=== PATIENT | male | born 1965 | race Caucasian/White ===

== ENCOUNTER → 2017-01-10 | Outpatient (CLI) | payer BC, SELFPAY ==
[~2017-01-10] MED LIST: ALIVE WOMEN'S1 EAC1 PO; ASA325 MG PO; CARAFATE DPS1 GM PO; CELEBREX100 MG PO; FISH OIL 1,2001 EAC1 PO; MIRALAX PACKET17 GM PO; OXY IR DPS5 MG PO; PRILOSEC DPS20 MG PO; PROSTA-STRONG PO; REFRESH TEARS15 ML OU; SENOKOT S1 TAB PO; SUPER B COMPLE150 MG PO; TYLENOL DPS325 MG PO; ULTRAM DPS50 MG PO
== END | disposition home or self-care (01) ==
LOC: PTH.S 09:13
DX: Z01.818 Encounter for other preprocedural examination (principal); M17.12 Unilateral primary osteoarthritis, left knee

== ENCOUNTER 2017-01-21 09:08 | Inpatient (IN) | payer BC, SELFPAY ==
[~2017-01-21] VITALS: Ht 162.6 cm; Wt 80.1 kg
--- NOTE | 2017-01-22 08:12 | HP ---
ADMIT: 01/21/2017 RM/LOC: W[facility] MR#: [id number] [address] [facility] [address] [place], [place] [address] [facility] [address] [place] [address] Pre-OP History and Physical SEX: M AGE: 51 : 1965 DATE OF SERVICE: CHIEF COMPLAINT: Osteoarthritis, left knee. HISTORY OF PRESENT ILLNESS: This patient presents today for left total knee arthroplasty. He has had all the usual conservative care including medication, injection, and activity modification, all without relief of his symptoms. Currently, he has pain that interferes with activities of daily living, pain that interferes with sleep, activity related pain, and rest pain. Because of ongoing pain unresponsive to conservative care, he presents for total knee arthroplasty of the left knee. PAST MEDICAL HISTORY: He has history of rheumatoid arthritis, a cardiac arrhythmia, and GERD. PAST SURGICAL HISTORY: Include a knee arthroscopy and a cataract surgery. MEDICATIONS: Include: 1. Aleve. 2. Multivitamin. 3. Fish oil. 4. Prilosec. ALLERGIES: NO ALLERGIES TO MEDICINES. FAMILY HISTORY: Noncontributory. SOCIAL HISTORY: Nonsmoker. Lives here in [place]. PHYSICAL EXAMINATION: This patient has -5 to 130 degrees range of motion of the left knee. He has a varus deformity, medial joint line pain, and patellofemoral crepitus. No effusion. IMAGING DATA: X-rays show advanced osteoarthritis with joint space collapse, subchondral sclerosis of marginal osteophytes. IMPRESSION: Osteoarthritis, left knee. RECOMMENDATIONS: Left total knee arthroplasty. Risks, benefits, alternatives, as well as potential complications were discussed. Aura Harper MD/ rosalio JOB #: [id number] CC: Aura Harper, Attending Physician Jose Serna, Family Physician
--- NOTE | 2017-01-22 08:12 | OR ---
ADMIT: 01/21/2017 RM/LOC: [address] [facility] [id number] [id number] [address] [facility] [facility] [place], [place] [address] [facility] [address] [place], [place] [address] Operative/Delivery Room Report SEX: M AGE: 51 : 1965 SURGERY DATE: 01/21/2017 SURGEON: Aura Harper MD PREOPERATIVE DIAGNOSIS: Osteoarthritis, left knee. POSTOPERATIVE DIAGNOSIS: Osteoarthritis, left knee. PROCEDURE: Left total knee arthroplasty. ASSISTED BY: Philipp Butler PA-C ANESTHESIA: Spinal. TOURNIQUET TIME: 48 minutes. ESTIMATED BLOOD LOSS: 25 mL. COMPLICATIONS: None. SPECIMEN: Bone. COMPONENTS: Lawrence [employer] [id number] total knee system with a #6 narrow posterior stabilized lugged femoral, #5 fixed bearing tibial, 6 mm tibial articular, and 38 mm patella. I used 80 g of [employer] SpeedSet bone cement without antibiotics. DESCRIPTION OF PROCEDURE: This patient was brought to the operating room after a satisfactory level of anesthesia was achieved. The left lower extremity was prepped and draped in the usual sterile fashion. Under tourniquet ischemia, a midline incision was made over the anterior aspect of the left knee. Dissection was carried through the subcutaneous tissue. Skin flaps were developed at the level of the joint capsule. A medial parapatellar incision was performed, and the patella was then everted. The knee was then flexed, and using an intramedullary alignment guide, I made my distal femoral cut at 5 degrees of the long axis of the femur taking off an additional millimeter to help compensate for his flexion contracture. The appropriate cutting blocks were then used to prepare the distal femur for a #6 narrow posterior stabilized lugged femoral component then the external alignment guide was then used to make my tibial cut at a right angle to the long axis of the tibia and #5 gave us the best coverage of the proximal tibia. A 6 mm tibial articular gave us the best range of motion and stability. The patella was measured and cut for a 38 mm patellar component and that restored his patellar height. All trial components were then removed. We used the [facility] pain cocktail as opposed to previously using Exparel, this was injected in the soft tissues per protocol then after thorough irrigation of all bony surfaces, I used 80 g of [place] bone cement without antibiotics to cement in all 3 components. They were impacted into position. A trial reduction performed with the knee held in extension and irrigated with warm antibiotic ADMIT: 01/21/2017 RM/LOC: [address] [facility] MR#: [id number] [address] [facility] [address] [place], [place] [id number] [facility] [address] [place] [address] Operative/Delivery Room Report SEX: M AGE: 51 : 1965 solution until the cement had hardened. When the cement had hardened, I flexed the knee, removed any extruded cement, irrigated the knee to remove any cement debris. I then released the tourniquet, obtained hemostasis and then implanted my final component. The 6 mm tibial articular, the knee was again reduced, and once again, I had very good stability in both extension and 90 degrees of flexion. Very stable patellofemoral tracking and then the joint capsule and synovium were closed as a single layer using interrupted #1 Vicryl and a running #2 Quill suture. The subcutaneous tissue was reapproximated with 2-0 Vicryl and a running subcuticular of 3-0 Monocryl was used and the skin was then closed with Ethicon Prineo per protocol. A sterile dressing was applied, and the patient was then transferred from the operative suite in stable condition. Aura Harper MD/ rosalio GARCES: 01/21/2017 13:25:05 JOB #: [id number] CC: Aura Harper, Attending Physician Jose Serna, Family Physician
[2017-01-24] MEDS ORDERED: SUPER B COMPLE150 MG PO (10:23)
[2017-01-24] MEDS ORDERED: PRILOSEC DPS20 MG PO (10:23)
[2017-01-24] MEDS ORDERED: FISH OIL 1,2001 EAC1 PO (10:24)
[2017-01-24] MEDS ORDERED: CARAFATE DPS1 GM PO (10:24)
[2017-01-24] MEDS ORDERED: PROSTA-STRONG PO (10:25)
[2017-01-24] MEDS ORDERED: ALIVE WOMEN'S1 EAC1 PO (10:26)
[2017-01-24] MEDS ORDERED: ASA325 MG PO (10:27)
[2017-01-24] MEDS ORDERED: REFRESH TEARS15 ML OU (10:27)
[2017-01-24] MEDS ORDERED: MIRALAX PACKET17 GM PO (10:27)
[2017-01-24] MEDS ORDERED: CELEBREX100 MG PO (10:27)
[2017-01-24] MEDS ORDERED: ULTRAM DPS50 MG PO (10:28)
[2017-01-24] MEDS ORDERED: TYLENOL DPS325 MG PO (10:28)
[2017-01-24] MEDS ORDERED: SENOKOT S1 TAB PO (10:28)
[2017-01-24] MEDS ORDERED: OXY IR DPS5 MG PO (10:29)
--- NOTE | 2017-02-11 11:27 | DS ---
ADMIT: 01/21/2017 RM/LOC: 526 [facility] MR#: [id number] [address] [place], [place] [address] APOLLO GUNTER [address] [place] [address] General Discharge Summary SEX: M AGE: 51 : 1965 ADMISSION DATE: 01/21/2017 DISCHARGE DATE: 01/23/2017 REASON FOR ADMISSION: Elective left total knee arthroplasty after failing conservative care. PREOPERATIVE DIAGNOSIS: Osteoarthritis of the left knee. POSTOPERATIVE DIAGNOSIS: Osteoarthritis of the left knee. PROCEDURE PERFORMED: Left total knee arthroplasty. SURGEON: Aura Harper MD DATA CENTER CONSULTANT: Philipp Butler PA-C ANESTHESIA: Spinal. ESTIMATED BLOOD LOSS: 25 mL. COMPLICATIONS: None. ACTIVE MEDICAL PROBLEMS: Fatty liver disease, reflux-induced esophagitis, hyperlipidemia, and lumbar spondylosis. HOSPITAL COURSE: The patient was admitted on 01/21/2017, for elective left total knee arthroplasty done successfully without any complications by Dr. Harper. The patient tolerated the procedure well. Postoperatively, the patient did well with pain control with use of intraoperative anesthetics as well as postoperative oral analgesics. The patient as expected did suffer from some acute blood loss anemia. His hemoglobin dropped to 13.1 on 01/23/2017, but he remained hemodynamically stable and did not require blood transfusion. By postoperative day #2, he was doing well with physical therapy. He was safe, stable, and ready for discharge home with plans for outpatient physical therapy. DISCHARGE MEDICATIONS: 1. Omeprazole 20 mg at bedtime. 2. Super B Complex vitamin every day. 3. Sucralfate 1 g 1 tablet twice daily as needed before meals. 4. Fish oil 1200 mg everyday. 5. Prosta-Strong 4 softgels everyday. 6. Active multivitamin every day. 7. Refresh Eyes 1 drop twice daily as needed for both eyes. 8. Aspirin 325 mg at bedtime for 6 weeks. ADMIT: 01/21/2017 RM/LOC: 526 [facility] MR#: [id number] [address] [place], [place] [address] LIZY GUNTERNO [address] [place] [address] General Discharge Summary SEX: M AGE: 51 : 1965 9. Celebrex 200 mg twice daily for 1 week. 10.MiraLax 17 g every day. 11.Senokot 2 tablets twice daily. 12.Tylenol 650 mg every 6 hours as needed for pain. 13.Ultram 50 mg 1 to 2 tablets every 6 hours as needed for pain. 14.Oxycodone IR 5 mg 1 to 2 tablets every 4 hours as needed for breakthrough pain. DISCHARGE INSTRUCTIONS: The patient was discharged home with plans for outpatient physical therapy per total knee arthroplasty protocol. Follow up in the orthopedic office in 2 weeks, for wound check in 6 weeks with x-ray. Follow up with primary care as directed. HUSSEIN Zee / Aura Harper MD / rosalio JOB #: [id number] CC: Aura Harper MD, Attending Physician Jose Serna MD, Family Physician
--- NOTE | 2017-03-10 15:33 | CO ---
ADMIT: 01/21/2017 RM/LOC: W.04 [facility] MR#: [id number] [address] [place], [place] [address] APOLLO GUNTER [address] [place] [address] Consultation Report SEX: M AGE: 51 : 1965 DATE OF CONSULTATION: 01/14/2017 ATTENDING PHYSICIAN: Aura Harper CONSULTING PHYSICIAN: Jose Serna MD REASON FOR CONSULTATION: Preoperative clearance. HISTORY OF PRESENT ILLNESS: This is a 51-year-old male, very pleasant, who has had a longstanding history of left knee pain and DJD. He has tried anti-inflammatories, pain relievers, cortisone injections. Nothing gives him significant relief. It is affecting his ability to ambulate appropriately and function normally at work. He has exhausted conservative measures and is scheduled to undergo left total knee arthroplasty on November 23. He denies any recent colds, cough, congestion, fevers or chills. No other specific concerns or complaints. PAST MEDICAL HISTORY: Remarkable for fatty liver disease, reflux-induced esophagitis, hyperlipidemia, lumbar spondylolysis. SURGERIES: Include cholecystectomy, left knee arthroscopy, and complete colonoscopy. CURRENT MEDICATIONS: Include: 1. Ranitidine 150 mg p.o. b.i.d. 2. Proctozone HC 2.5% cream p.r.n. 3. Sucralfate 1 g p.o. before meals b.i.d. 4. Super B-Complex daily. 5. Fish oil 1200 mg daily. 6. Prosta-Strong 4 soft gels daily. 7. Glucosamine chondroitin 2 tabs daily. 8. Multivitamin daily. 9. Icy Hot b.i.d. p.r.n. 10.Aleve 220 mg twice daily as needed. 11.Refresh Eyes b.i.d. p.r.n. ALLERGIES: NONE. FAMILY HISTORY: Mother with coronary artery disease, hypertension, DJD, and anxiety. Sister with ND. Father was murdered. SOCIAL HISTORY: Does not smoke. Drinks very little alcohol and works at [employer]. REVIEW OF SYSTEMS: GENERAL: No fevers or chills. HEENT: No headaches, blurry vision, or double vision. CARDIAC: No chest pains or shortness of breath. GASTROINTESTINAL: No nausea, vomiting, diarrhea, or constipation. : No dysuria, urgency, or frequency. ADMIT: 01/21/2017 RM/LOC: W.04 [facility] MR#: [id number] [address] [facility] [address] [place] [id number] [facility] [address] [place] [address] Consultation Report SEX: M AGE: 51 : 1965 ENDOCRINE: No polyuria, polydipsia. PSYCH: No depression. PHYSICAL EXAMINATION: VITAL SIGNS: Blood pressure 122/80, pulse 69, respirations 18, temp 97.9. GENERAL: No acute distress. Alert, interactive, and oriented. HEENT: Pupils are reactive. Conjunctivae are clear. Clear nasal mucosa. Clear oropharynx. Moist mucous membranes. NECK: Soft and supple without lymphadenopathy. No thyromegaly. LUNGS: Clear to auscultation with good respiratory effort. HEART: Regular without murmur. ABDOMEN: Soft. It is nontender. EXTREMITIES: No cyanosis, no clubbing, no edema. SKIN: No rashes. NEUROLOGIC: Cranial nerves II through XII grossly intact. No focal deficits. ASSESSMENT: Left knee degenerative disk disease. PLAN: EKG shows nothing acute. Lab values are all fine. We will plan on proceeding with the procedure as scheduled. We will follow along in the perioperative period. We will plan on using a full strength enteric-coated aspirin for DVT prophylaxis. Jose Serna MD/ rosalio JOB #: [id number] CC: Aura Harper, Attending Physician Jose Serna, Family Physician
== END 2017-01-23 15:20 | disposition home or self-care (01) | DRG 470 ==
LOC: 5MS 09:52 → WOR 09:52 → 5MS 13:54
PROVIDERS: ADMIT Orthopaedic Surgery
PROC: 0SRD0J9 Replacement of Left Knee Joint with Synthetic Substitute, Cemented, Open Approach (ICD-10-PCS; principal; 2017-01-21)
DX: M17.12 Unilateral primary osteoarthritis, left knee (principal); K76.0 Fatty (change of) liver, not elsewhere classified; D62 Acute posthemorrhagic anemia; M06.9 Rheumatoid arthritis, unspecified; I49.9 Cardiac arrhythmia, unspecified; K21.9 Gastro-esophageal reflux disease without esophagitis; E78.5 Hyperlipidemia, unspecified; M47.9 Spondylosis, unspecified; Z82.49 Family history of ischemic heart disease and other diseases of the circulatory system